=== PATIENT | male | born 1995 | race Hispanic/Latino ===

== ENCOUNTER 2024-01-17 14:59 | Emergency (ER) | payer SELFPAY ==
[~2024-01-17] VITALS: Ht 165.1 cm; Wt 88.5 kg
[2024-01-17 15:45] VITALS: PULSE 83; RESP 12; TEMP 98.7; O2SAT 97
[2024-01-17] MEDS ORDERED: AMOX TR-K CLV1 EAC2 PO (16:03)
== END 2024-01-17 16:14 | disposition home or self-care (01) ==
LOC: ER 15:06
DX: J02.9 Acute pharyngitis, unspecified (principal)
CPT/HCPCS: 99283